=== PATIENT | male | born 1950 | race Caucasian/White ===

== ENCOUNTER 2018-09-11 12:16 | Outpatient (REF) | payer BC, SELFPAY ==
[2018-09-11 19:02] LABS: Anion Gap 10.1 mmol/L (3-11); BUN 22 mg/dL (7-18); CO2 27.9 mmol/L (21.0-32.0); Calcium 9.1 mg/dL (8.5-10.1); Chloride 107 mmol/L (98-107); Glucose 101 mg/dL (70-100); LDL CHOLESTEROL 130 mg/dL (<100); Potassium 4.3 mmol/L (3.5-5.1); Sodium 145 mmol/L (136-145)
== END 2018-09-11 12:36 ==
LOC: NCHCN 12:16
PROVIDERS: PCP Internal Medicine; Visit Provider Internal Medicine
DX: E78.5 Hyperlipidemia, unspecified (principal); C44.91 Basal cell carcinoma of skin, unspecified; F52.21 Male erectile disorder; G71.11 Myotonic muscular dystrophy
CPT/HCPCS: 80048; 83721

== ENCOUNTER 2019-09-27 11:54 | Outpatient (REF) | payer BC, SELFPAY ==
[2019-09-27 19:33] LABS: HCT 47.3 % (40.0-50.0); HGB 15.5 g/dL (13.5-17.5); Mean Corp. HGB Concentration 32.8 g/dL (32.0-36.0); Mean Corpuscular Hemoglobin 30.3 pg (27.0-33.0); Mean Corpuscular Volume 92.6 fL (80-95); Mean Platelet Volume 12.4 fL (8.0-11.0); Platelet Count 146 x1000/uL (130-400); RBC 5.11 m/cumm (4.50-6.00); RBC Distribution Width 13.7 % (11.8-14.1); White Blood Cell Count 3.21 k/cumm (4.4-10.8)
[2019-09-27 19:50] LABS: ALT 68 U/L (16-63); AST 33 U/L (15-37); Albumin 4.1 g/dL (3.4-5.0); Alkaline Phosphatase 63 U/L (46-116); BUN 14 mg/dL (7-18); Bilirubin, Total 0.5 mg/dL (0.2-1.0); CREATININE 0.89 mg/dL (0.70-1.30); Calcium 9.6 mg/dL (8.5-10.1); Chloride 105 mmol/L (98-107); Glucose 107 mg/dL (74-106); LDL CHOLESTEROL 152 mg/dL (<100); Potassium 4.9 mmol/L (3.5-5.1); Sodium 141 mmol/L (136-145); TSH 1.37 uIU/mL (0.36-3.74); Total Protein 6.8 g/dL (6.4-8.2)
[2019-10-04 11:50] LABS: Testosterone, Free 6.55 ng/dL (3.47-13.0); Testosterone, Total 385 ng/dL (240-950)
== END 2019-09-27 12:14 ==
LOC: NCHCN 11:54
PROVIDERS: PCP Internal Medicine; Visit Provider Internal Medicine
DX: E78.5 Hyperlipidemia, unspecified (principal); R00.2 Palpitations; F52.21 Male erectile disorder; G71.11 Myotonic muscular dystrophy
CPT/HCPCS: 80053; 83721; 84402; 84403; 85027; 83036; 84443

== ENCOUNTER 2020-10-27 21:00 | Outpatient (REF) | payer BC, SELFPAY ==
[2020-10-27 22:35] LABS: ALT 52 U/L (16-63); Anion Gap 6.5 mmol/L (3-11); BUN 21 mg/dL (7-18); CO2 29.5 mmol/L (21.0-32.0); Calcium 9.5 mg/dL (8.5-10.1); Chloride 108 mmol/L (98-107); Glucose 98 mg/dL (74-106); LDL CHOLESTEROL 99 mg/dL (<100); Potassium 4.9 mmol/L (3.5-5.1); Sodium 144 mmol/L (136-145)
== END 2020-10-27 21:01 | disposition home or self-care (01) ==
LOC: NCHCN 21:00
PROVIDERS: PCP Internal Medicine; Visit Provider Internal Medicine
DX: R73.09 Other abnormal glucose (principal); E78.5 Hyperlipidemia, unspecified; I10 Essential (primary) hypertension; G71.11 Myotonic muscular dystrophy
CPT/HCPCS: 80048; 83721; 84460

== ENCOUNTER 2021-05-29 01:59 | Outpatient (CLI) | payer BC, SELFPAY ==
--- NOTE | 2021-05-29 10:30 | DI.US_ITS ---
APPROVED REPORT EXAM: Comprehensive 2D, Doppler, and color-flow Echocardiogram Patient Location: Out-Patient Supervisor Bonding: Heike Ayala RDCS (AE) Indications: Myotonic Dystrophy Other Information Study Quality: Adequate Conclusion Normal left ventricular wall thickness and chamber size. Estimated ejection fraction is 60%. Wall m otion is normal Normal right ventricular size and systolic function Both atria are normal in size Trileaflet aortic valve without stenosis or regurgitation Normal mitral valve with trace to mild regurgitation Normal tricuspid valve with trace regurgitation. Estimated right ventricular systolic pressure is 28 mmHg Mildly dilated ascending aorta measuring 3.58 cm Wall motion Left Ventricle The left ventricle is normal size. The left ventricular systolic function is normal. The left ventric ular ejection fraction is within the normal range. There is normal left ventricular wall thickness. T here is normal LV segmental wall motion. There is no ventricular septal defect visualized. LVEF is 60 %. Right Ventricle The right ventricle is normal size. The right ventricular systolic function is normal. The RVSP is 28 .5 mmHg. Atria The left atrium size is normal. The right atrium size is normal. The interatrial septum is intact wit h no evidence for an atrial septal defect. Aortic Valve The aortic valve is normal in structure. Aortic valve is trileaflet. There is no aortic valvular sten osis. No aortic regurgitation is present. Mitral Valve The mitral valve is normal in structure. No evidence of mitral valve stenosis. Trace to mild mitral r egurgitation. Tricuspid Valve The tricuspid valve is normal in structure. There is no tricuspid valve stenosis. Trace tricuspid reg urgitation. Pulmonic Valve The pulmonary valve is normal in structure. There is no pulmonic valvular stenosis. Trace to mild pul chrissy regurgitation. Great Vessels The aortic root is normal in size. The ascending aorta is mildly dilated. Aortic arch is normal in ca liber. IVC is normal in size and collapses >50% with inspiration. Pericardium There is no pericardial effusion. 2D Dimensions IVSD d PLAX 1.02 cm M: 0.6-1.2 LV Vol A2C d MOD 81.0 mL LVPW d PLAX 1.03 cm M: 0.6 - 1.2 LV Vol A4C d MOD 81.9 mL LVID d PLAX 4.29 cm M: 4.2 - 5.8 LA vol/ BSA A2C s A-L 21.8 mL/m2 LVDs 2.85 cm M: 2.5 - 4.0 LA vol/ BSA A4C s A-L 21.6 mL/m2 Ao Root d 3.21 cm M: 3.1 - 3.7 LA Vol/ BSA Biplane s A-L 22.9 mL/m2 RA Area A4C 10.74 cm2 LA Area A4C s MOD 16.17 cm2 RA Vol/ BSA A4C s A-L 10.8 mL/m2 LA Area A2C s MOD 15.42 cm2 Ao Asc Diam d 3.58 cm M: 2.6 - 3.4 LV EF A4C MOD 60.6 % LV EF Teichholz 62.4 % LV EF A2C MOD 60.3 % LVEF (Fraire's) 62.04 % M: 52 - 72 LV EF Biplane MOD 62.0 % LV Volume 65.99 mL M: 62 - 150 SV 53.24 mL LV Volume Index 35.47 mL/m2 M: 34 - 74 SV Index 28.64 mL/m2 LV Vol Biplane MOD 85.8 mL FS 33.35 % M-Mode TAPSE 1.60 cm (M/F) >1.7 LV Diastology MV E' medial 0.046 (>0.07 m/s) E/A Ratio 0.7 LV E/e MED 12.25 (<14) MV E Vmax 0.56 (0.4-1.3 m/s) MV E' lateral 0.058 (>0.1 m/s) MV A Vmax 0.75 (0.4-1.3 m/s) LV E/e LAT 9.75 (<14) MV E/A Ratio 0.74 MV E/E' medial 12.26 MV E/E' lateral 9.77 Aortic Valve LVOT Area 3.47 cm2 AoV Area Vmax 2.56 cm2 LVOT Vmax 0.88 m/s AoV Area/ BSA (Vmax) 1.38 cm2/m2 LVOT Mean Sanju. 0.53 m/s HEIDE Mean Sanju. 2.10 cm2 LVOT Peak Grad 3.1 mmHg HEIDE Mean Sanju. Index 1.13 cm2/m2 LVOT Mean Grad 1.4 mmHg LVOT VTI 0.156 m LVOT Diam s 2.10 cm AoV Vmax 1.18 m/s Velocity Ratio 0.74 AoV Mean Sanju. 0.88 m/s AoV Peak Grad 5.6 mmHg LVOT SV 54.20 mL AoV Mean Grad 3.4 mmHg AoV VTI 0.215 m AoV Area VTI 2.52 cm2 AoV Area/ BSA (VTI) 1.36 cm/m2 Mitral Valve MV DT 276 (160-240 msec) MV PHT 80 msec MV Area PHT 2.75 cm2 MV VTI 0.208 m MV Area VTI 2.60 (4.0-6.0 cm2) Pulmonary Valve PV Vmax 1.01 (0.5-1.5 m/s) RVOT Peak Gr. 2.86 mmHg PV Peak Grad 4.1 mmHg RVOT Mean Gr. 1.50 mmHg PV Mean Grad 2.1 mmHg RVOT VTI 0.113 m PV VTI 0.162 m RVOT Vmax 0.85 m/s Tricuspid Valve TR Peak Grad 25.4 mmHg TR Vmax 2.52 m/s RA Pressure 3.00 mmHg RVSP (TR) 28.5 mmHg
== END 2021-05-29 02:19 ==
PROVIDERS: PCP Internal Medicine; Visit Provider Internal Medicine
DX: G71.11 Myotonic muscular dystrophy (principal); I77.819 Aortic ectasia, unspecified site
CPT/HCPCS: 93306

== ENCOUNTER 2021-10-29 12:26 | Outpatient (REF) | payer OTHER, SELFPAY ==
[2021-10-29 20:42] LABS: ALT 55 U/L (16-63); Anion Gap 7.7 mmol/L (3-11); BUN 20 mg/dL (7-18); CO2 29.3 mmol/L (21.0-32.0); CREATININE 0.8 mg/dL (0.70-1.30); Calcium 9.2 mg/dL (8.5-10.1); Calculated LDL 87 mg/dL (<100); Chloride 104 mmol/L (98-107); Cholesterol 171 mg/dL (<200); Glucose 103 mg/dL (74-106); HDL Cholesterol 51 mg/dL (40-60); Potassium 4.8 mmol/L (3.5-5.1); Sodium 141 mmol/L (136-145); Triglyceride 168 mg/dL (<150)
[2021-10-29 21:03] LABS: Creatine Kinase 180 U/L (39-308)
[2021-10-29 21:39] LABS: Hemoglobin A1C 6.2 % (<5.7)
== END 2021-10-29 12:27 | disposition home or self-care (01) ==
LOC: NCHCN 12:26
PROVIDERS: PCP Internal Medicine; Visit Provider Internal Medicine
DX: E78.5 Hyperlipidemia, unspecified (principal); I10 Essential (primary) hypertension; R73.03 Prediabetes
CPT/HCPCS: 80048; 80061; 82550; 83036; 84460

== ENCOUNTER 2022-10-27 12:38 | Outpatient (REF) | payer MEDICARE, SELFPAY ==
[2022-10-27 22:31] LABS: ALT 51 U/L (16-63); Anion Gap 6.2 mmol/L (3-11); BUN 16 mg/dL (7-18); CO2 29.8 mmol/L (21.0-32.0); CREATININE 0.9 mg/dL (0.70-1.30); Calcium 9.7 mg/dL (8.5-10.1); Calculated LDL 84 mg/dL (<100); Chloride 106 mmol/L (98-107); Cholesterol 170 mg/dL (<200); Estimated GFR 90.74 (mL/min/1.73m2); Glucose 107 mg/dL (74-106); HDL Cholesterol 47 mg/dL (40-60); Sodium 142 mmol/L (136-145); Triglyceride 199 mg/dL (<150)
[2022-10-27 23:09] LABS: Creatine Kinase 216 U/L (39-308)
[2022-11-06 10:50] LABS: Testosterone, Free 7.87 ng/dL (3.28-12.2); Testosterone, Total 395 ng/dL (240-950)
== END 2022-10-27 12:39 | disposition home or self-care (01) ==
LOC: NCHCN 12:38
PROVIDERS: PCP Internal Medicine; Visit Provider Internal Medicine
DX: I10 Essential (primary) hypertension (principal); F52.21 Male erectile disorder; E78.5 Hyperlipidemia, unspecified; R73.09 Other abnormal glucose
CPT/HCPCS: 80048; 80061; 82550; 84402; 84403; 84460

== ENCOUNTER 2022-11-08 16:19 | Outpatient (REF) | payer MEDICARE, SELFPAY ==
[2022-11-13 11:41] LABS: Testosterone, Free 5.15 ng/dL (3.28-12.2); Testosterone, Total 298 ng/dL (240-950)
== END 2022-11-08 16:20 | disposition home or self-care (01) ==
LOC: NCHCN 16:19
PROVIDERS: PCP Internal Medicine; Visit Provider Internal Medicine
DX: G71.11 Myotonic muscular dystrophy (principal); F52.21 Male erectile disorder
CPT/HCPCS: 84402; 84403

== ENCOUNTER 2023-10-26 19:44 | Outpatient (REF) | payer MEDICARE, SELFPAY ==
[2023-10-26 20:35] LABS: HCT 47.9 % (40.0-50.0); HGB 15.5 g/dL (13.5-17.5); MCH 30.7 pg (27.0-33.0); MCHC 32.4 % (32.0-36.0); MCV 95 fL (80-95); MPV 11.8 fL (8.0-11.0); Platelet Count 139 10^3/uL (130-400); RBC 5.05 10^6/uL (4.36-5.78); RDW 12.6 % (11.8-14.1); RDW-SD 43.7 fL; WBC 3.72 10^3/uL (4.4-10.8)
[2023-10-26 21:16] LABS: ALT 52 U/L (16-63); AST 30 U/L (15-37); Albumin 4.1 g/dL (3.4-5.0); Alkaline Phosphatase 77 U/L (46-116); Anion Gap 6.2 mmol/L (3-11); BUN 16 mg/dL (7-18); Bilirubin, Total 0.43 mg/dL (0.2-1.0); CO2 30.8 mmol/L (21.0-32.0); CREATININE 0.9 mg/dL (0.70-1.30); Calcium 9.4 mg/dL (8.5-10.1); Calculated LDL 86 mg/dL (<100); Chloride 106 mmol/L (98-107); Cholesterol 161 mg/dL (<200); Creatine Kinase 226 U/L (39-308); Estimated GFR 90.18 (mL/min/1.73m2); Glucose 107 mg/dL (74-106); HDL Cholesterol 48 mg/dL (40-60); Potassium 4.7 mmol/L (3.5-5.1); Sodium 143 mmol/L (136-145); TSH (W/Ref FT4) 0.79 uIU/mL (0.36-3.74); Total Protein 7.2 g/dL (6.4-8.2); Triglyceride 137 mg/dL (<150); Vitamin B12 764 pg/mL (193-986)
== END 2023-10-26 19:45 | disposition home or self-care (01) ==
LOC: NCHCN 19:44
PROVIDERS: PCP Internal Medicine; Visit Provider Internal Medicine
DX: I10 Essential (primary) hypertension (principal); E78.5 Hyperlipidemia, unspecified; R42 Dizziness and giddiness; G71.11 Myotonic muscular dystrophy; Z79.899 Other long term (current) drug therapy
CPT/HCPCS: 80053; 80061; 82550; 85027; 82607; 84443

== ENCOUNTER 2024-04-23 07:58 | Outpatient (CLI) | payer MEDICARE, SELFPAY ==
--- NOTE | 2024-04-23 06:00 | DI.RAD_ITS ---
Exam(s) XR PAIN CLINIC SACRIOILIAC 2V EXAM: XR PAIN CLINIC SACRIOILIAC 2V CLINICAL HISTORY: Dx: Sacroiliac Joint Dysfunction. TECHNIQUE: Fluoroscopy was provided for the referring physician for guidance with performing pain cl inic injection procedure. COMPARISON: No exams were available for comparison FINDINGS: Please see procedure note for details. Fluoro time: 18.8 seconds RADIATION DOSE DELIVERED: Ka,r=4.76 mGy
[2024-04-23 08:22] VITALS: BP 146/102; PULSE 82; RESP 18; TEMP 36.9; O2SAT 96
--- NOTE | 2024-04-23 08:22 | PDOC.PAIN ---
Date of service: 04/23/24 Time of Service: 08:51 Pain Managment Procedure Note Procedure Note Procedure Note: ?Sacroiliac Joint Steroid Injection ? Location: ? Right SI Joint? Pre-procedure Diagnosis: Sacroiliitis, not elsewhere classified - M46.1 ? Post-procedure Diagnosis:? The same as above ? Sedation:? NONE ? Medication: Depo-Medrol 40 mg, bupivacaine 0.5% 1 mL, Omnipaque 0.25 mL per joint ? Estimated blood loss:? less than 2 cc ? Surgeon:? Rivas Lucas MD ? COMMENT: THIS WILL BE BOTH DIAGNOSTIC AND THERAPEUTIC . Is positive on 3 provocative tests. Neurologically he is intact. ? Procedure Detail:? The procedure and potential risks were explained to the patient and informed written consent was obtained. The patient was escorted to the procedure room and placed in the prone position. Pillows were utilized for proper positioning and comfort. Time out was performed in the procedure room with nursing staff confirming the patient's identity, procedure to be performed, allergies, and any blood thinning or anti-platelet medications. The patient's lumbosacral area was prepped with ChloraPrep and draped in a sterile fashion. Sterile technique was maintained throughout the procedure.? Sterile gloves were used, a face mask was worn, and new single dose vials of all medications were used with the top being swabbed with alcohol and given time to dry prior to withdrawal of medication. Lidocaine 1% was used to anesthetize the skin. With fluoroscopic guidance, a 22-gauge 3.5 spinal needle was advanced into the posteroinferior aspect of the Right SI joint . Confirmation of intra-articular position of the needle tip was obtained with injection of 0.25cc of Omnipaque 240 contrast which showed appropriate spread within the joint.? Following negative aspiration, 40mg of methylprednisolone mixed with 1 mL of bupivacaine 0.5% was injected.? The needle was gently removed. ?The patient tolerated the procedure well and was transported to the recovery area for observation and discharge instructions.? Permanent images saved and recorded. Plan:? Follow up prn. PAIN PRE PROCEDURE 5/10 POST PROCEDURE 0/10 COMMENT: 100 % BETTER AFTER INJECTION. He does have some radiation of pain down his right lower extremity and if he is not better than get an updated MRI. His last lumbar MRI was in 2007
[2024-04-23 08:51] VITALS: PULSE 71; O2SAT 94
[2024-04-23] MEDS: methylPREDNISolone ACETATE 80 MG/ML VIAL IJ (08:53)
[2024-04-23] MEDS: Bupivacaine 0.5% Pres-Free 10 ML VIAL IJ (08:53)
[2024-04-23] MEDS: Nerve Block Tray 1 EACH MC (08:53)
[2024-04-23] MEDS: Omnipaque 240 MG/ML 50 ML BTL IJ (08:54)
== END 2024-04-23 07:59 | disposition home or self-care (01) ==
LOC: PC 07:58
PROVIDERS: PCP Internal Medicine; Visit Provider Anesthesiology Pain Medicine
DX: M54.50 Low back pain, unspecified (principal); M46.1 Sacroiliitis, not elsewhere classified
CPT/HCPCS: 00123; 27096; 72200; J0665; J1010; Q9967

== ENCOUNTER 2024-07-23 12:18 | Outpatient (REF) | payer MEDICARE, SELFPAY ==
[2024-07-23 20:00] LABS: ALT 47 U/L (16-63); AST 39 U/L (15-37); Alkaline Phosphatase 74 U/L (46-116); Anion Gap 4.8 mmol/L (3-11); BUN 18 mg/dL (7-18); Bilirubin, Total 0.6 mg/dL (0.2-1.0); CO2 31.2 mmol/L (21.0-32.0); CREATININE 0.9 mg/dL (0.70-1.30); Calcium 9.8 mg/dL (8.5-10.1); Chloride 103 mmol/L (98-107); Estimated GFR 90.18 (mL/min/1.73m2); Glucose 116 mg/dL (74-106); Potassium 4.7 mmol/L (3.5-5.1); Sodium 139 mmol/L (136-145); Total Protein 7.2 g/dL (6.4-8.2)
== END 2024-07-23 12:19 | disposition home or self-care (01) ==
LOC: NCHCN 12:18
PROVIDERS: PCP Internal Medicine; Visit Provider Nurse Practitioner Family
DX: I10 Essential (primary) hypertension (principal)
CPT/HCPCS: 80053